=== PATIENT | female | born 1950 | race Caucasian/White ===

== ENCOUNTER 2017-05-06 08:46 | Emergency (ER) | payer MEDICARE, BC ==
[~2017-05-06 08:46] MED LIST: ACYC-1 PO; ALBU8.5H IH; ALPR-429 PO; ASPI-1471 PO; CALC600T63 PO; CEFU250T11 PO; EPIN0.3P15 IM; FLAX100041 PO; FLU45SYR25 IM ONLY; FLU60SYR30 IM ONLY; GOLYTE PO; GUAI-242 PO; LEVO75TA73 PO; LEVO88TA43 PO; LYSI500T34 PO; METH4TAB66 PO; MONT5TAB4 PO; MULT1CAP59 PO; OMEG10007 PO; ONDA4TAB97 PO; OSE75 PO; OXYC-865 PO; RANI150C17 PO; SERT-184 PO; SIMV-54 PO; SUMA100T33 PO; TRAZ-156 PO; [UNRECOGNIZED DRUG - CODE] PO
--- NOTE | 2017-05-06 09:04 | ER Report ---
History and Physical Time Seen By MD: 08:50 HPI/ROS CHIEF COMPLAINT: found her draped over the couch HISTORY OF PRESENT ILLNESS: 67-year-old female reports she nearly passed out. She was pressing on her hand last night after bumping it on another object and noticed some swelling on the right hand. She's not sure if she hit it hard enough to cause a fracture. Today she was found slumped over the couch. She felt lightheaded. No vertigo. She felt like she might pass out. She did not actually lose consciousness. found her slumped over the couch and she did not provide a reasonable story for what happened. She has had low blood pressure before. She is unsure if this happened again. She has never had a cardiac arrhythmia. She has no palpitations chest pain shortness of breath nausea headache neurological deficits neck stiffness rashes or other concerns. REVIEW OF SYSTEMS: Constitutional: No fever, no chills. Eyes: No discharge. ENT: No sore throat. Cardiovascular: No chest pain, no palpitations. Respiratory: No cough, no shortness of breath. Gastrointestinal: No abdominal pain, no vomiting. Genitourinary: No hematuria. Musculoskeletal: No back pain. Skin: No rashes. Neurological: No headache. Allergies: Coded Allergies: Penicillins (Verified Allergy, Severe, Hives, Difficulty breathing, 05/06/17 ) bimatoprost (Verified Allergy, Severe, swelling eyelids, 05/06/17) travoprost (Verified Allergy, Severe, swelling eyelids, 05/06/17) Home Meds Active Scripts Trazodone Hcl (TRAZODONE HCL) 50 Mg Tablet, 1 TAB PO QHS for 90 Days, #90 TAB 0 Refills Prov:CAITY LENZ DNP, FNP-BC 05/04/17 Sertraline Hcl (SERTRALINE HCL) 50 Mg Tablet, 1 TAB PO QDAY for 90 Days, #90 TAB 0 Refills Take one-half tab by mouth daily x8 days. Then take one full tab daily. Prov:CAITY LENZ DNP, FNP-BC 05/04/17 Alprazolam (XANAX) 0.5 Mg Tablet, 0.5-1 TAB PO TID Y for ANXIETY, #30 TAB 0 Refills Prov:CAITY LENZ DNP, FNP-BC 05/04/17 Codeine/Butalbital/Asa/Caffein (FIORINAL WITH CODEINE #3 CAP) 1 Each Capsule, 1 CAP PO ONCE Y for MIGRAINE, #30 CAPSULE 0 Refills Take one cap by mouth with onset of migraine. Prov:CA[facility]EN[facility], [facility] 05/04/17 Ranitidine Hcl (RANITIDINE HCL) 150 Mg Capsule, 150 MG PO BID for 90 Days, #180 CAPSULE 0 Refills Prov:CAITY LENZ DNP [facility] 05/04/17 Acyclovir (ACYCLOVIR) 200 Mg Capsule, 1 CAP PO 5XD Y for outbreak, #25 CAP 3 Refills Prov:CAITY LENZ DNP [facility] 05/04/17 Simvastatin (SIMVASTATIN) 40 Mg Tablet, 1 TAB PO HS, #90 TAB 0 Refills Prov:CAITY [facility], [facility] 05/04/17 Montelukast Sodium (MONTELUKAST SODIUM) 5 Mg Tab.chew, 1 TAB PO QDAY, #90 TAB.CHEW Prov:CAITY LENZ DNP [facility] 05/04/17 Levothyroxine Sodium (SYNTHROID) 88 Mcg Tablet, 1 TAB PO QDAY, #90 TAB 3 Refills Prov:LEON ACUNA MD 01/24/17 Epinephrine (EPIPEN 2-HEATHER) 0.3 Mg/0.3 Ml Pen.injctr, 0.3 MG IM PRN Y for allergic reaction, #1 PACK 1 Refill Prov:LEON ACUNA MD 11/28/16 Sumatriptan Succinate (SUMATRIPTAN SUCCINATE) 100 Mg Tablet, 1 TAB PO ONCE Y for MIGRAINE, #18 TAB 4 Refills Prov:LEON ACUNA MD 03/31/16 Reported Medications Albuterol Sulfate 90 Mcg/Act (PROAIR HFA 90 MCG/ACT) 8.5 Gm Hfa.aer.ad, 2 PUFF IH Q4-6H Y for SHORTNESS OF BREATH, INHALER 05/05/16 [place]-3/Dha/Epa/Fish Oil (Fish Oil 1,000 mg Softgel) 1,000 Mg (120 Mg-180 Mg) Capsule, 1 CAP PO QDAY 04/13/16 Flaxseed Oil (FLAX SEED OIL) 1,000 Mg Capsule, 2 CAP PO QDAY 04/13/16 Lysine (LYSINE) 500 Mg Tablet, 1 TAB PO QDAY 04/13/16 Calcium Carbonate (CALCIUM) 600 Mg Tablet, 1 TAB PO BID 04/13/16 Multivitamin (MULTIVITAMINS) 1 Each Capsule, 1 CAP PO QDAY 04/13/16 Aspirin (ASPIR 81) 81 Mg Tablet.dr, 1 TAB PO QDAY, TAB 12/23/15 Discontinued Reported Medications Ranitidine Hcl (RANITIDINE HCL) 150 Mg Capsule, 1 CAP PO BID 12/23/15 Hx Smoking: No Smoking Status: Never Smoker Exposure to Second Hand Smoke?: [place] Hx Alcohol Use: Yes Constitutional Vital Sign - Last 24 Hours 05/06/17 05/06/17 05/06/17 05/06/17 08:50 09:10 09:30 09:33 Pulse 79 81 ??? 87 98 Resp 16 B/P (MAP) 132/66 117/71 (86) 115/68 (84) 126/82 (97) 114/81 (92) Pulse Ox 93 O2 Delivery Room Air 05/06/17 10:00 Pulse 94 Resp 13 B/P (MAP) 113/73 (86) Pulse Ox 94 Physical Exam General Appearance: The patient is alert, has no immediate need for airway protection and no signs of toxicity. No acute distress Eyes: Pupils equal and round no pallor or injection. ENT, Mouth: Mucous membranes are moist. Respiratory: There are no retractions, lungs are clear to auscultation. Cardiovascular: Regular rate and rhythm. No murmers, gallops or rubs. Gastrointestinal: Abdomen is soft and non tender, no masses, bowel sounds normal. Neurological: Normal gross neuro exam. Skin: Warm and dry, no rashes. Musculoskeletal: Neck is supple non tender. Extremities are nontender, nonswollen and have full range of motion. No edema DIFFERENTIAL DIAGNOSIS: After history and physical exam differential diagnosis was considered for syncope, presyncope, dehydration, orthostasis, cardiac arrhythmia, no signs of sepsis or meningitis or CVA or other serious process. Medical Decision Making Data Points Result Diagram: 05/06/1790405/06/17904 Laboratory Hematology Test 05/06/17 09:05 05/06/17 09:33 05/06/17 10:00 Red Blood Count 4.80 M/uL (4.17-5.56) Mean Corpuscular Volume 88.4 fL (80.0-96.0) Mean Corpuscular Hemoglobin 29.7 pg (26.0-33.0) Mean Corpuscular Hemoglobin Concent 33.5 g/dL (32.0-36.0) Red Cell Distribution Width 14.6 % (11.5-14.5) Mean Platelet Volume 8.7 fL (7.2-11.1) Neutrophils (%) (Auto) 73.3 % (39.4-72.5) Lymphocytes (%) (Auto) 18.0 % (17.6-49.6) Monocytes (%) (Auto) 6.9 % (4.1-12.4) Eosinophils (%) (Auto) 1.4 % (0.4-6.7) Basophils (%) (Auto) 0.4 % (0.3-1.4) Nucleated RBC Relative Count (auto) 0.0 /100WBC Neutrophils # (Auto) 6.5 K/uL (2.0-7.4) Lymphocytes # (Auto) 1.6 K/uL (1.3-3.6) Monocytes # (Auto) 0.6 K/uL (0.3-1.0) Eosinophils # (Auto) 0.1 K/uL (0.0-0.5) Basophils # (Auto) 0.0 K/uL (0.0-0.1) Nucleated RBC Absolute Count (auto) 0.00 K/uL Sodium Level 144 mmol/L (137-145) Potassium Level 3.8 mmol/L (3.5-5.0) Chloride Level 104 mmol/L (98-107) Carbon Dioxide Level 24 mmol/L (22-31) Blood Urea Nitrogen 19 mg/dl (7-18) Creatinine 1.00 mg/dl (0.52-1.04) Glomerular Filtration Rate Calc 55.1 Random Glucose 78 mg/dl (75-110) Calcium Level 9.8 mg/dl (8.4-10.2) Total Bilirubin 0.3 mg/dl (0.2-1.3) Aspartate Amino Transf (AST/SGOT) 20 U/L (0-35) Alanine Aminotransferase (ALT/SGPT) 36 U/L (0-56) Alkaline Phosphatase 58 U/L (0-126) Total Protein 6.6 gm/dl (6.3-8.2) Albumin 3.9 g/dl (3.5-5.0) Urine Color Alesha Urine Clarity Cloudy Urine pH 6.0 pH (4.8-9.5) Urine Specific [place] 1.024 Urine Protein 30 mg/dL (NEGATIVE) Urine Glucose (UA) Negative mg/dL (NEGATIVE) Urine Ketones Trace mg/dL (NEGATIVE) Urine Blood Negative (NEGATIVE) Urine Nitrite Negative (NEGATIVE) Urine Bilirubin Negative (NEGATIVE) Urine Urobilinogen 2.0 mg/dL (0.2-1.9) Urine Leukocyte Esterase Small (NEGATIVE) Urine RBC 1 /HPF (0-2/HPF) Urine WBC 8 /HPF (0-5/HPF) Urine Squamous Epithelial Cells Many /LPF (</=FEW) Urine Amorphous Crystals Few /HPF Urine Bacteria Few /HPF (NONE-FEW) Urine Hyaline Casts Many /LPF (NONE-FEW) Urine Mucus Few /HPF (NONE-FEW) Influenza Virus Type A (PCR) Negative (NEGATIVE) Influenza Virus Type B (PCR) Negative (NEGATIVE) Chemistry Test 05/06/17 09:05 05/06/17 09:33 05/06/17 10:00 White Blood Count 8.8 k/uL (4.5-11.0) Red Blood Count 4.80 M/uL (4.17-5.56) Hemoglobin 14.2 g/dL (12.0-16.0) Hematocrit 42.5 % (34.0-47.0) Mean Corpuscular Volume 88.4 fL (80.0-96.0) Mean Corpuscular Hemoglobin 29.7 pg (26.0-33.0) Mean Corpuscular Hemoglobin Concent 33.5 g/dL (32.0-36.0) Red Cell Distribution Width 14.6 % (11.5-14.5) Platelet Count 285 K/uL (150-450) Mean Platelet Volume 8.7 fL (7.2-11.1) Neutrophils (%) (Auto) 73.3 % (39.4-72.5) Lymphocytes (%) (Auto) 18.0 % (17.6-49.6) Monocytes (%) (Auto) 6.9 % (4.1-12.4) Eosinophils (%) (Auto) 1.4 % (0.4-6.7) Basophils (%) (Auto) 0.4 % (0.3-1.4) Nucleated RBC Relative Count (auto) 0.0 /100WBC Neutrophils # (Auto) 6.5 K/uL (2.0-7.4) Lymphocytes # (Auto) 1.6 K/uL (1.3-3.6) Monocytes # (Auto) 0.6 K/uL (0.3-1.0) Eosinophils # (Auto) 0.1 K/uL (0.0-0.5) Basophils # (Auto) 0.0 K/uL (0.0-0.1) Nucleated RBC Absolute Count (auto) 0.00 K/uL Glomerular Filtration Rate Calc 55.1 Calcium Level 9.8 mg/dl (8.4-10.2) Total Bilirubin 0.3 mg/dl (0.2-1.3) Aspartate Amino Transf (AST/SGOT) 20 U/L (0-35) Alanine Aminotransferase (ALT/SGPT) 36 U/L (0-56) Alkaline Phosphatase 58 U/L (0-126) Total Protein 6.6 gm/dl (6.3-8.2) Albumin 3.9 g/dl (3.5-5.0) Urine Color Alesha Urine Clarity Cloudy Urine pH 6.0 pH (4.8-9.5) Urine Specific [place] 1.024 Urine Protein 30 mg/dL (NEGATIVE) Urine Glucose (UA) Negative mg/dL (NEGATIVE) Urine Ketones Trace mg/dL (NEGATIVE) Urine Blood Negative (NEGATIVE) Urine Nitrite Negative (NEGATIVE) Urine Bilirubin Negative (NEGATIVE) Urine Urobilinogen 2.0 mg/dL (0.2-1.9) Urine Leukocyte Esterase Small (NEGATIVE) Urine RBC 1 /HPF (0-2/HPF) Urine WBC 8 /HPF (0-5/HPF) Urine Squamous Epithelial Cells Many /LPF (</=FEW) Urine Amorphous Crystals Few /HPF Urine Bacteria Few /HPF (NONE-FEW) Urine Hyaline Casts Many /LPF (NONE-FEW) Urine Mucus Few /HPF (NONE-FEW) Influenza Virus Type A (PCR) Negative (NEGATIVE) Influenza Virus Type B (PCR) Negative (NEGATIVE) Urinalysis Test 05/06/17 09:33 Urine Color Alesha Urine Clarity Cloudy Urine pH 6.0 pH (4.8-9.5) Urine Specific [place] 1.024 Urine Protein 30 mg/dL (NEGATIVE) Urine Glucose (UA) Negative mg/dL (NEGATIVE) Urine Ketones Trace mg/dL (NEGATIVE) Urine Blood Negative (NEGATIVE) Urine Nitrite Negative (NEGATIVE) Urine Bilirubin Negative (NEGATIVE) Urine Urobilinogen 2.0 mg/dL (0.2-1.9) Urine Leukocyte Esterase Small (NEGATIVE) Urine RBC 1 /HPF (0-2/HPF) Urine WBC 8 /HPF (0-5/HPF) Urine Squamous Epithelial Cells Many /LPF (</=FEW) Urine Amorphous Crystals Few /HPF Urine Bacteria Few /HPF (NONE-FEW) Urine Hyaline Casts Many /LPF (NONE-FEW) Urine Mucus Few /HPF (NONE-FEW) EKG/Imaging EKG Interpretation EKG interpretation my read 9:08 AM 05/06/2017 normal EKG ventricular rate is 76 normal HI QRS and QTc intervals no ST or T-wave changes to suggest ischemia or infarction overall normal EKG. ED Course/Re-evaluation ED Course Plan of care was discussed and agreed upon. 05/06/2017 9:41:58 am labs were reviewed All results results were discussed home care follow-up and reasons to return were discussed;strict return precautions were given. Decision to Disposition Date: May 06, 2017 Decision to Disposition Time: 11:00 Depart Departure Latest Vital Signs Vital Signs Date Time Temp Pulse Resp B/P (MAP) Pulse Ox O2 Delivery O2 Flow Rate FiO2 05/06/17 10:00 94 13 113/73 (86) 94 05/06/17 08:50 Room Air Impression: Primary Impression: Syncope, near Condition: Improved Disposition: HOME OR SELF-CARE Referrals: LEON ACUNA MD (PCP) Patient Instructions: Near Syncope (ED) FELA HARRIS MD May 06, 2017 09:04
[2017-05-06 09:16] LABS: PLATELET COUNT, AUTOMATED 285 K/uL (150-450)
--- NOTE | 2017-05-06 09:40 | EKG ---
FACILITY: [facility] PATIENT NAME: RUSSELL HA : [id number] MR: [id number] V: [id number] EXAM DATE: ORDERING PHYSICIAN: FELA HARRIS TECHNOLOGIST: ALL Test Reason : SYNCOPE Blood Pressure : / mmHG Vent. Rate : 076 BPM Atrial Rate : 076 BPM P-R Int : 184 ms QRS Dur : 070 ms QT Int : 400 ms P-R-T Axes : 052 -10 023 degrees QTc Int : 450 ms Normal sinus rhythm Normal ECG When compared with ECG of 23-JAN-2016 21:05, Relatively unchanged Confirmed by IVONNE ARRIAGA ([id number]) on 05/06/2017 3:06:41 PM Referred By: SUKHDEV Confirmed By:IVONNE ARRIAGA
--- NOTE | 2017-05-06 10:31 | RADIOLOGY IMAGING REPORT ---
FACILITY: [facility] PATIENT NAME: Selin Johnston : 1950 MR: [id number] V: [id number] EXAM DATE: ORDERING PHYSICIAN: FELA HARRIS TECHNOLOGIST: Location: Patient: Selin Johnston : 1950 Visit/Account:[id number] Date of Sevice: 05/06/2017 CHEST PA AND LAT INDICATION: Evaluate for pneumonia COMPARISON: None available FINDINGS: The cardiac silhouette is normal in size. No pneumothorax. Prominence of epicardial fat a djacent to the cardiac apex in the left lower lung. This could alternatively represent scarring or child bsegmental atelectasis. Otherwise clear lungs. Cholecystectomy clips noted. No acute osseous abnormal ity. No pleural fluid. IMPRESSION: Small nonspecific opacity adjacent to the left cardiac apex at the left lung base. This may represent chronic epicardial fat. This could alternatively represent chronic scarring or subsegmental atelecta sis. Report Dictated By: Yordan Hector MD at 05/06/2017 10:26 AM Report E-Signed By: Yordan Hector MD at 05/06/2017 10:28 AM WSN:[id number]
--- NOTE | 2017-05-06 10:33 | RADIOLOGY IMAGING REPORT ---
FACILITY: [facility] [place] PATIENT NAME: Selin Johnston : 1950 MR: [id number] V: [id number] EXAM DATE: ORDERING PHYSICIAN: FELA HARRIS TECHNOLOGIST: [place] [facility] [place] Selin [place] : 1950 Visit/Account:[id number] Date of Sevice: 05/06/2017 EXAMINATION: Right hand radiographs 3 views HISTORY: Swelling COMPARISON: None. FINDINGS: 3 views obtained. Bones: Normal. Joint spaces: Mild first carpal metacarpal joint space degeneration. Alignment: Normal. Soft tissues: Equivocal dorsal soft tissue swelling. IMPRESSION: No fracture or malalignment. Equivocal dorsal soft tissue swelling. Report Dictated By: Yordan Hector MD at 05/06/2017 10:28 AM Report E-Signed By: Yordan Hector MD at 05/06/2017 10:29 AM WSN:[id number]
[2017-05-06 11:00] VITALS: BP 118/73
== END 2017-05-06 11:27 | disposition home or self-care (01) ==
LOC: ER 09:11
DX: R55 Syncope and collapse (principal); Z79.82 Long term (current) use of aspirin
CPT/HCPCS: 71046; 81001; 82040; 82247; 82310; 82374; 82435; 82565; 82947; 84075; 84132; 84155; 84295; 84443; 84450; 84460; 84520; 85025; 87502; 93005; 99283

== ENCOUNTER → 2018-01-09 | Outpatient (CLI) | payer MEDICARE, BC ==
[~2018-01-09] MED LIST changes: +BENZ200C15 PO; +FLU180SY11 IM; +GUAI120L3 PO; +HYDR30CR10 TP; -TRAZ-156 PO; +TRAZ50TA34 PO
[2018-01-09 10:12] LABS: LDL CHOLESTEROL 92 mg/dl
== END ==
LOC: LAB 07:53
PROVIDERS: ATTEND Internal Medicine
DX: E78.00 Pure hypercholesterolemia, unspecified (principal); E03.9 Hypothyroidism, unspecified
CPT/HCPCS: 36415; 82040; 82247; 82310; 82374; 82435; 82465; 82565; 82947; 83718; 84075; 84132; 84155; 84295; 84443; 84450; 84460; 84478; 84520

== ENCOUNTER → 2018-01-25 | Outpatient (CLI) | payer MEDICARE, BC ==
--- NOTE | 2018-01-25 11:42 | RADIOLOGY IMAGING REPORT ---
FACILITY: [facility] [place] PATIENT NAME: Selin Johnston : 1950 MR: [id number] V: [id number] EXAM DATE: ORDERING PHYSICIAN: LEON ACUNA TECHNOLOGIST: Location: [facility] Patient: Selin Johnston : 1950 Visit/Account:[id number] Date of Sevice: 01/25/2018 DEXA Scan Clinical history: Postmenopausal screening. Comparison: None available. LUMBAR SPINE: The bone mineral density (BMD) measured from L1-L4 correlates with a Z-score -0.4 and a T-score of -1 .7 which is osteopenia as defined by the World Health Organization. The corresponding risk of fractu re in the lumbar spine is 4 times increased compared with a young adult reference population. HIP: Bone mineral density (BMD) measured in the Left total hip region correlates with a Z-score by 0.2 and a T-score of is 1.3 which is osteopenia as defined by the World Health Organization. The correspond ing risk of fracture in the hip is 2-3 times increased compared with a young adult reference populati on. T score left femoral neck -1.8 Bone mineral density (BMD) measured in the Femoral Neck region measures 0.793 g/cm2. Impression: 1. Lumbar spine: Osteopenia. 2. Left Hip: Osteopenia. 3. Femoral Neck: Bone Mineral Density is 0.793 g/cm2 The next DEXA scan of this patient should include the following sites: L1-L4 and the left hip. FRAX? WHO Fracture Risk Assessment Tool link: <http://www.shef.ac.uk/FRAX/tool.jsp?locationValue=9> PLEASE NOTE: 1) The World Health Organization defines low BMD as follows: T-score Normal > -1 Osteopenia < -1 and > -2.5 Osteoporosis < -2.5 without fractures Established osteoporosis < -2.5 with fractures 2) In general, you may wish to consider: Diagnosis Treatment Follow-up DEXA Normal BMD Prevention 2-3 years Osteopenia Prevention/therapy 1-2 years Osteoporosis Therapy Yearly 3) Fracture risk estimated from the T-score is more accurate for vertebral fractures (often spontane ous) than for hip fractures. Report Dictated By: Babita Foster MD at 01/25/2018 11:07 AM Report E-Signed By: Babita Foster MD at 01/25/2018 11:38 AM WSN:[email or web address]
--- NOTE | 2018-01-25 13:49 | RADIOLOGY IMAGING REPORT ---
FACILITY: [facility] - [place] PATIENT NAME: RUSSELL HA : [id number] MR: [id number] V: [id number] EXAM DATE: [id number] ORDERING PHYSICIAN: LEON ACUNA TECHNOLOGIST: Valentina Novoa PROCEDURE:BILATERAL DIGITAL SCREENING MAMMOGRAM WITH CAD ASSISTED INTERPRETATION & 3D TOMOSYNTHESIS COMPARISON:Prior mammograms dated 01/16/17, 01/10/16, 12/16/14, 11/12/13, 11/05/12, INDICATIONS:screening FINDINGS: A small amount of fibroglandular tissue is seen throughout the breasts. The parenchymal pattern has remained stable allowing for difference in mammographic technique & patient positioning. The well circumscribed nodular density in the 3 o'clock position Left breast appears stable as is the well circumscribed ovoid nodule in the 9 o'clock position of the Right breast. There is no evidence of malignant appearing mass, malignant appearing calcification or other secondary sign of malignancy in either breast. DIAGNOSTIC CATEGORY 2--BENIGN FINDING. RECOMMENDATIONS: ROUTINE MAMMOGRAM AND CLINICAL EVALUATION. IMPRESSION: BIRADS 2: Benign finding. No significant abnormality is seen. Dictated by: Babita Foster M.D. on 01/25/2018 at 10:52 Transcribed by: DEJUAN on 01/25/2018 at 13:27 Approved by: Babita Foster M.D. on 01/25/2018 at 13:48 [facility]
== END ==
LOC: MAMO 06:36
PROVIDERS: ATTEND Internal Medicine
DX: Z12.31 Encounter for screening mammogram for malignant neoplasm of breast (principal); M85.88 Other specified disorders of bone density and structure, other site; N63.21 Unspecified lump in the left breast, upper outer quadrant
CPT/HCPCS: 77063; 77067; 77080

== ENCOUNTER → 2018-02-11 | Outpatient (CLI) | payer MEDICARE, BC | LOC: LAB 12:19 | PROVIDERS: ATTEND Internal Medicine | DX: M85.80 Other specified disorders of bone density and structure, unspecified site (principal) | CPT/HCPCS: 36415; 82306 ==

== ENCOUNTER → 2018-05-09 | Outpatient (CLI) | payer MEDICARE, BC ==
[~2018-05-09] MED LIST changes: +AZIT-1 PO; +BIOCLEANSE PO; +BUTA1TAB14 PO; +CHOL100058 PO; +LEVO50TA86 PO; +LEVO5TAB28 PO; +PRED20TA6 PO; +ROSU10TA5 PO
[2018-05-09 14:11] LABS: PLATELET COUNT, AUTOMATED 396 K/uL (150-450)
--- NOTE | 2018-05-09 14:19 | RADIOLOGY IMAGING REPORT ---
FACILITY: [facility] [place] PATIENT NAME: Selin Johnston : 1950 MR: [id number] V: [id number] EXAM DATE: ORDERING PHYSICIAN: KUSUM FAYE TECHNOLOGIST: Location: [facility] Patient: Selin Johnston : 1950 Visit/Account:[id number] Date of Sevice: 05/09/2018 Exam type: CHEST PA LAT History: Cough Comparison: May 06, 2017. Findings: There is a small amount of linear stranding at the left lung base consistent with scarring versus ate lectasis. There is no evidence of acute effusions infiltrates or edema. The cardiac silhouette is n ormal in size. The trachea is midline. There are surgical clips in the right upper quadrant abdomen . IMPRESSION: 1. Small amount linear stranding in the left lung base consistent with scarring versus atelectasis A message was left for KUSUM FAYE at 05/09/2018 2:14 PM. Report Dictated By: Babita Foster MD at 05/09/2018 2:12 PM Report E-Signed By: Babita Foster MD at 05/09/2018 2:14 PM WSN:[email or web address]
== END ==
LOC: LAB 13:35
PROVIDERS: ATTEND Emergency Medicine
DX: R91.8 Other nonspecific abnormal finding of lung field (principal); M85.80 Other specified disorders of bone density and structure, unspecified site; E03.9 Hypothyroidism, unspecified
CPT/HCPCS: 71046; 82310; 83970; 84443; 85025

== ENCOUNTER → 2018-06-04 | Outpatient (CLI) | payer MEDICARE, BC | LOC: LAB 08:24 | PROVIDERS: ATTEND Emergency Medicine | DX: E78.5 Hyperlipidemia, unspecified (principal) | CPT/HCPCS: 36415; 82465; 83718; 84478 ==

== ENCOUNTER → 2018-06-19 | Outpatient (CLI) | payer MEDICARE, BC | LOC: LAB 08:27 | PROVIDERS: ATTEND Emergency Medicine | DX: E03.9 Hypothyroidism, unspecified (principal); R41.3 Other amnesia | CPT/HCPCS: 36415; 84443 ==

== ENCOUNTER → 2018-07-03 | Outpatient (CLI) | payer MEDICARE, BC | LOC: RESP 10:37 | PROVIDERS: ATTEND Surgery | DX: B07.9 Viral wart, unspecified (principal) | CPT/HCPCS: 88305 ==

== ENCOUNTER → 2018-07-05 | Outpatient (CLI) | payer MEDICARE, BC ==
[~2018-07-05] MED LIST changes: +DEN60I SUBQ
== END ==
LOC: RESP 20:03
PROVIDERS: ATTEND Emergency Medicine
DX: G47.33 Obstructive sleep apnea (adult) (pediatric) (principal); G47.61 Periodic limb movement disorder

== ENCOUNTER → 2018-08-30 | Outpatient (CLI) | payer MEDICARE, BC ==
[~2018-08-30] MED LIST changes: +TRAM-420 PO; -TRAZ50TA34 PO; +TRAZ50TA52 PO
--- NOTE | 2018-08-30 14:17 | RADIOLOGY IMAGING REPORT ---
FACILITY: [facility] [place] PATIENT NAME: Selin Johnston : 1950 MR: [id number] V: [id number] EXAM DATE: ORDERING PHYSICIAN: KUSUM FAYE TECHNOLOGIST: Location: [facility] Patient: Selin Johnston : 1950 Visit/Account:[id number] Date of Sevice: 08/30/2018 EXAMINATION: CT facial bones without IV contrast HISTORY: Jaw pain. Maxilla and mandible, concern is osteonecrosis of the jaw. COMPARISON: None. TECHNIQUE: Axial images were obtained from the superior aspect of the orbits through the inferior as pect of mandible. Coronal and sagittal reformatted images were obtained from the axial source data. N o IV contrast was administered. One of the following dose optimization techniques was utilized in the performance of this exam: Autom ated exposure control; adjustment of the mA and/or kV according to the patient's size; or use of an i terative reconstruction technique. Specific details can be referenced in the facility's radiology C T exam operational policy. FINDINGS: Soft Tissues: Negative. Mandible/TMJ: No acute fracture or dislocation. Dental caries of the left 1st premolar tooth crown. T here is no abnormal lucency adjacent to the dental roots. Bone mineral density of the mandible is nor mal, without sclerosis, lysis or cortical erosion. Maxilla/pterygoid plates: There is lucency adjacent to the root of the left 1st premolar tooth. Bone mineral density maxilla is normal, without sclerosis, lysis or cortical erosion. Zygoma/zygomatic arches: Negative. Orbits: Previous lens surgery on the left. Nasal bones/nasal septum: Mild nasal septal deviation to the right. Uncomplicated 1.2 cm basim bullo sa on the left. Frontal bones: Negative. Sinuses: Minimal mucosal thickening in the right sphenoid sinus. Visualized brain: Negative. IMPRESSION: 1. No evidence of osteonecrosis of the maxilla or mandible. 2. Dental caries of the crown of the left mandibular 1st premolar tooth, and periapical lucency adjac ent to the root of the left maxillary 1st premolar tooth. Report Dictated By: Alana Calvert MD at 08/30/2018 1:48 PM Report E-Signed By: Alana Calvert MD at 08/30/2018 2:11 PM WSN:[email or web address]
== END ==
LOC: RAD 12:30
PROVIDERS: ATTEND Emergency Medicine
DX: R68.84 Jaw pain (principal)
CPT/HCPCS: 70486

== ENCOUNTER → 2018-10-03 | Outpatient (CLI) | payer MEDICARE | LOC: RESP 19:59 | PROVIDERS: ATTEND Emergency Medicine | DX: G47.33 Obstructive sleep apnea (adult) (pediatric) (principal); G47.61 Periodic limb movement disorder ==